=== PATIENT | female | born 1995 | race Caucasian/White ===

== ENCOUNTER → 2018-03-07 11:11 | Outpatient (CLI) | payer OTHER, SELFPAY ==
--- NOTE | 2018-03-07 11:22 | XR_ITS ---
XR chest 2V HISTORY: Positive TB skin test ITS.REASON: REACTION TO TB SKIN TEST ORDERING PHYSICIAN: Eryn Singh PATIENT AGE: 22 years COMPARISON: None FINDINGS: The cardiomediastinal silhouette and pulmonary vascularity are within normal limits. The lungs are clear without infiltrates, suspicious nodules, or pleural effusions. No acute bony abnormalities. IMPRESSION: Negative chest, no acute finding No radiographic evidence of active tuberculosis
== END ==
PROVIDERS: PCP Nurse Practitioner Family; Visit Provider Nurse Practitioner Family
DX: R76.11 Nonspecific reaction to tuberculin skin test without active tuberculosis (principal)
CPT/HCPCS: 71046

== ENCOUNTER → 2018-09-01 15:51 | Outpatient (CLI) | payer BC, SELFPAY ==
--- NOTE | 2018-09-01 15:56 | XR_ITS ---
XR sacrum coccyx min 2V CLINICAL INDICATION: Posttraumatic pain ITS.REASON: COCCYGEAL PAIN ORDERING PHYSICIAN: Iliana Govea PATIENT AGE: 22 years Comparison: None FINDINGS: No fracture or dislocation. No lytic or blastic change IMPRESSION: Negative sacrum/coccyx
== END ==
PROVIDERS: PCP Physician Assistant; Visit Provider Physician Assistant
DX: M53.3 Sacrococcygeal disorders, not elsewhere classified (principal)
CPT/HCPCS: 72220

== ENCOUNTER → 2020-03-17 18:38 | Outpatient (CLI) | payer MEDICAID, SELFPAY | PROVIDERS: Visit Provider Nurse Practitioner | DX: B35.1 Tinea unguium (principal) | CPT/HCPCS: 87102; 87206; 87220 ==

== ENCOUNTER → 2020-08-01 15:24 | Outpatient (CLI) | payer MEDICAID, SELFPAY | PROVIDERS: PCP Family Medicine; Visit Provider Nurse Practitioner Family | DX: Z03.818 Encounter for observation for suspected exposure to other biological agents ruled out (principal); J06.9 Acute upper respiratory infection, unspecified | CPT/HCPCS: U0003 ==

== ENCOUNTER 2021-03-18 09:36 | Emergency (ER) | payer MEDICAID, SELFPAY ==
[2021-03-18 09:40] VITALS: BP 138/89; PULSE 87; RESP 19; TEMP 36.8; O2SAT 100; BMI 26.6
--- NOTE | 2021-03-18 10:29 | HMH.EDUTC ---
[facility] Disposition Clinical Impression: UTI (urinary tract infection) Qualifiers: Urinary tract infection type: site unspecified Hematuria presence: with hematuria Qualified Code(s): N39.0 - Urinary tract infection, site not specified; R31.9 - Hematuria, unspecified Disposition: Home, Self-Care Condition on Discharge: Good Instructions: DI for Urinary Tract Infection (UTI), Urinary Tract Infection, Nitrofurantoin Additional Instructions: *Increase fluids. Water not Soda or Tea *Start antibiotic immediately and be sure to take as ordered for the FULL length of time although you should start to see improvement over the next 48 hours *Pyridium as needed Remember this medication will turn your urine [place]. This is normal but it will stain what ever it gets on *You should not use Pyridium for more than 48 hours. If so , follow up with your primary physician to review urine culture and ensure that antibiotic is adequate for infection *Be SURE to follow up anytime for new or worsening symptoms with your family doctor. AND in 48 hours for urine culture results with your family doctor, if you do not have a doctor then you may call back to the [facility] for urine culture results and further treatment. We do recommend that you choose and establish care with a Primary Care Physician. AND follow up with them in 10-14 days to repeat UA to ensure infection is resolved and blood no longer present *Be sure to let your PCP know that we sent urine cultures from the [facility] so they can follow up to ensure that you area the on the correct antibiotic Call your doctor office and make appointment for 48 hours (2 days from today) to follow up and get the results of your urine culture and further treatment Prescriptions: Nitrofurantoin Monohyd/M-Cryst [Macrobid 100 mg Capsule] 100 mg PO BID 7 Days #14 cap Transmission Status: Pending to [facility] # Phenazopyridine HCl [Pyridium 200mg Tablet] 200 pow PO TID #6 tab Transmission Status: Pending to [facility] # Referrals: Arvind Connolly MD [Primary Care Provider] - As needed Time of Disposition: 10:35 Medical Decision Making - Mariusz Inquiry Pt receiving controlled substance: No Mariusz was queried for this patient: No Vital Signs: 03/18/21 09:40 Temperature 98.3 F Temperature Source Oral Pulse Rate [Right Brachial] 87 Respiratory Rate 19 Blood Pressure [Right Arm] 138/89 Blood Pressure Mean [Right Arm] 105 Blood Pressure Source [Right Arm] Automatic Cuff Blood Pressure Position [Right Arm] Sitting 02 Sat by Pulse Oximetry 100 Oxygen Delivery Method Room Air - Lab Data Lab results reviewed: Yes: I reviewed the patient's lab results. Orders (Tests/Meds): ORDERS Category Date Time Status Urine Culture Stat Micro 03/18/21 10:00 Received [facility] HPI - General Stated complaint: possible uti Time Seen by Provider: 03/18/21 10:30 Mode of Arrival: Ambulatory Source of Information: Patient Limitations: No Limitations Description of Symptoms (Recalled from Triage Doc. by RN): PATIENT C/O PAINFUL URINATION SINCE THIS MORNING HEENT Symptoms (Recalled from RN notes): No Resp Symptoms (Recalled from RN notes): No Skin Symptoms (Recalled from RN notes): No MS Symptoms (Recalled from RN notes): No Functional Status (Recalled from RN notes): WNL - History of Present Illness Provider Complaint: Patient state that she noticed yesterday her urine was dark with strong odor States that this morning she was having the feeling of urgency and frequency and burning with urination States that she feels like she may have a UTI Denies fever, chills or abdominal pain - Related Data Home Medications Medication Instructions Recorded Confirmed cetirizine 10 mg capsule 10 mg PO ONCE 03/04/18 03/18/21 norgestimate 0.18 mg/0.215 mg/0.25 1 tab PO ONCE 03/04/18 03/18/21 mg-ethinyl estradiol 25 mcg tablet levothyroxine 100 mcg tablet 100 mcg PO DAILY tab 06/16/20 03/18/21
[2021-03-18 10:40] VITALS: BP 138/89; PULSE 87; RESP 19; TEMP 36.8; O2SAT 100
[2021-03-18 10:40] LABS: Apearance,Urine Cloudy (Clear); Color,Urine Dark Yellow (Yellow); PH,Urine 6.5 (5.0-8.5); Protein,Urine 2+ (Negative); Specific Gravity, Urine 1.015 (1.005-1.030)
[2021-03-18 10:41] LABS: Bilirubin,Urine Negative (Negative); Blood, Urine 3+ (Negative); Glucose,Urine (UA) Negative (Negative); Ketones,Urine Negative (Negative); UTC Leukocyte Esterase,Urine 1+ (Negative); UTC Nitrate,Urine Negative (Negative); Urobilinogen,Urine 0.2 EU/dl (0.2)
== END 2021-03-18 10:43 | disposition home or self-care (01) ==
PROVIDERS: Emergency Provider Nurse Practitioner; PCP Family Medicine
DX: N30.00 Acute cystitis without hematuria (principal)
CPT/HCPCS: 81003; 87086; 87088; 87186; 99202; G0463

== ENCOUNTER 2022-10-21 13:43 | Emergency (ER) | payer OTHER, SELFPAY ==
[2022-10-21 14:00] VITALS: BP 145/88; PULSE 107; RESP 20; TEMP 37; O2SAT 98; BMI 29.5
--- NOTE | 2022-10-21 14:04 | EXP.UTC ---
Discharge Plan Disposition Patient Disposition: Home, Self-Care Condition: Good Prescriptions Prescriptions: New methylprednisolone 4 mg Tablets,Dose Pack 4 mg PO DIRECTED Qty: 21 0RF pseudoephedrine HCl 30 mg tablet 30 mg PO Q6HP PRN (Reason: ear pain) Qty: 30 0RF cefdinir 300 mg capsule 300 mg PO BID Qty: 20 0RF No Action cetirizine [Zyrtec] 10 mg capsule 10 mg PO ONCE levothyroxine 112 mcg tablet 112 mcg PO DAILY 90 Days Qty: 90 2RF norgestimate-ethinyl estradiol 0.18/0.215/0.25 mg-25 mcg tablet 1 tab PO ONCE 90 Days Qty: 90 2RF fluticasone propionate 120 SPR/BOT bottle 2 spr intranasal DAILY sulfamethoxazole-trimethoprim [Bactrim DS] 800-160 mg tablet 1 tab PO BID Referrals Follow up/Referrals: Tuan Ghotra MD [Primary Care Provider] - See instructions Activity Restrictions/Add. Instructions Additional Instructions/Restrictions: Drink plenty of fluids. Stop the bactrim that you have been taking. Start the Amoxicillin 875 and medrol dose pack in its place. The pseudophedirine that we prescribed should help with the pain and pressure in your ears until the antibiotic kicks in to treat it. Take tylenol or ibuprofen for pain or fever. Take the medications as directed. Follow up with your regular doctor. GO TO THE ER FOR ANY WORSENING SYMPTOMS Her symptoms began last week, so her work excuse needs to count for 10/18 () and 10/19 (saturday), if possible. Clinical Impressions Clinical Impression: Otitis media Stand Alone Forms Stand Alone Forms: Work/School Release Discharge ED Provider: Chilango Elizabeth [facility] HPI General Stated complaint: ear pain Time Seen by Provider: 10/21/22 14:04 History of Present Illness Provider Complaint: She states that she has had bilateral ear pain and sinus congestion for the past 3 days. Related Data Home Medications Medication Instructions Recorded Confirmed cetirizine 10 mg capsule (Zyrtec) 10 mg PO ONCE Allergy symptoms 03/04/18 10/21/22 fluticasone propionate 50 2 spr intranasal DAILY Allergy 03/18/21 10/21/22 mcg/actuation nasal symptoms spray,suspension sulfamethoxazole 800 1 tab PO BID abx 10/21/22 10/21/22 mg-trimethoprim 160 mg tablet (Bactrim DS) Previous Rx's Medication Instructions Recorded levothyroxine 112 mcg tablet 112 mcg PO DAILY thyroid 90 days 07/10/22 #90 tabs norgestimate 0.18 mg/0.215 mg/0.25 1 tab PO ONCE control 90 07/10/22 mg-ethinyl estradiol 25 mcg tablet days #90 tabs cefdinir 300 mg capsule 300 mg PO BID #20 caps 10/21/22 methylprednisolone 4 mg tablets in 4 mg PO DIRECTED #21 tabs 10/21/22 a dose pack pseudoephedrine HCl 30 mg tablet 30 mg PO Q6HP PRN ear pain #30 tabs 10/21/22 Allergies Allergy/AdvReac Type Severity Reaction Status Date / Time No Known Allergies Allergy Verified 10/21/22 14:12 [facility] Disclaimer: The information contained in this section may have been updated after the patient was seen, as this information can be updated by other users. Medical History Hypothyroidism Seasonal allergies Surgical History H/O adenoidectomy H/O hernia repair History of dental surgery History of placement of ear tubes History of tonsillectomy Family History Grandmother Cancer Thyroid disorder Grandfather Coronary artery disease Social History Smoking Status: Never smoker second hand exposure: No alcohol intake: never substance use type: denies use current occupational status: employed and other Travel in the last 8 weeks: Inside the [place] household members: family housing: house ROS Obtained: Yes All systems reviewed & no additional complaints except as documented Cons
[2022-10-21 15:28] VITALS: BP 145/88; PULSE 107; RESP 20; TEMP 37; O2SAT 98
== END 2022-10-21 15:28 | disposition home or self-care (01) ==
PROVIDERS: Emergency Provider Nurse Practitioner Family; PCP Family Medicine
DX: H66.90 Otitis media, unspecified, unspecified ear (principal)
CPT/HCPCS: 96372; 99212; 99213; G0463; J0696

== ENCOUNTER → 2022-11-28 09:02 | Outpatient (CLI) | payer OTHER, SELFPAY ==
[2022-11-28 17:11] LABS: Basophils # 0.1 K/mm3 (0-0.2); Basophils % 0.8 % (0.1-2.0); Eosinophils # 0.2 K/mm3 (0.0-0.4); Eosinophils % 2.3 % (0.1-12.0); Hematocrit 37.2 % (37.0-47.0); Lymphocytes # 1.2 K/mm3 (0.7-4.5); Mean Corpuscular HGB Conc 32.3 g/dL (31.8-35.4); Mean Corpuscular Hemoglobin 24.8 pg (27.0-31.2); Mean Corpuscular Volume 76.9 fl (81-99); Mean Platelet Volume 9.2 fl (7.4-10.4); Monocytes # 0.4 K/mm3 (0.1-1.0); Monocytes % 4.7 % (1.7-9.3); Neutrophils # 6.3 K/mm3 (1.8-7.8); Neutrophils % 77.3 % (37.0-80.0); Platelet Count 361 K/mm3 (142-424); Red Blood Count 4.85 M/mm3 (4.20-5.40); Red Cell Distribution Width 16.1 % (11.5-17.5); White Blood Count 8.2 K/mm3 (4.8-10.8)
[2022-11-28 17:41] LABS: Alanine Aminotransferase 13 U/L (12-78); Albumin/Globulin Ratio 1.6 (1.1-1.8); Alkaline Phosphatase 92 U/L (38-126); Anion Gap 9.5 mEq/L (5-15); Aspartate Amino Transferase 22 U/L (14-36); Bilirubin,Total 0.4 mg/dl (0.2-1.3); Blood Urea Nitrogen 7 mg/dl (7-17); Calcium 8.6 mg/dl (8.4-10.2); Carbon Dioxide 26 mmol/L (22.0-30.0); Chloride 106 mmol/L (98-107); Chol/HDL Ratio 4.3 (1-3.5); Cholesterol 209 mg/dl (140-200); Estimated Glomerular Filt Rate 120 ml/min (>60); GFR (African American) 145 ML/MIN (>60); Globulin 2.5 g/dL (1.3-3.2); Glucose 87 mg/dl (74-100); HDL Cholesterol 49 mg/dl (40-60); Potassium 4.5 mmoL/L (3.5-5.1); Sodium 137 mmol/L (136-145); Total Protein,Serum 6.5 g/dl (6.3-8.2); Triglycerides 156 mg/dl (30-150); VLDL Cholesterol 31 mg/dL (0-40)
[2022-11-28 17:52] LABS: Direct LDL Cholesterol 137.17 mg/dL (100-129)
[2022-11-28 18:12] LABS: Thyroid Stimulating Hormone 1.36 uIU/mL (0.465-4.68)
== END ==
PROVIDERS: PCP Nurse Practitioner Family; Visit Provider Nurse Practitioner Family
DX: R53.83 Other fatigue (principal); E03.9 Hypothyroidism, unspecified; Z79.899 Other long term (current) drug therapy
CPT/HCPCS: 36415; 80053; 80061; 84436; 84443; 85025

== ENCOUNTER → 2022-11-28 18:56 | Outpatient (CLI) | payer OTHER, SELFPAY | PROVIDERS: PCP Family Medicine; Visit Provider Family Medicine | DX: R53.83 Other fatigue (principal) ==

== ENCOUNTER → 2022-11-29 07:44 | Outpatient (CLI) | payer OTHER, SELFPAY ==
--- NOTE | 2022-11-29 07:44 | US_ITS ---
FINAL REPORT CLINICAL HISTORY: abdominal pain COMPARISON: None FINDINGS: Sonographic images of the right upper quadrant were obtained. The pancreas is partially obscured.The liver has an unremarkable appearance.The gallbladder appears normal without evidence of gallstones.There is no evidence of biliary ductal dilatation.The common duct measures 2 mm. Limited images of the right kidney are unremarkable. IMPRESSION: Unremarkable right upper quadrant ultrasound. Reviewed, Interpreted and Dictated by Chetan Armenta III, MD Transcribed by Mabel Lopez Authenticated and [facility]
== END ==
PROVIDERS: PCP Family Medicine; Visit Provider Family Medicine
DX: R10.9 Unspecified abdominal pain (principal); R53.83 Other fatigue
CPT/HCPCS: 76705

== ENCOUNTER → 2022-12-28 09:15 | Outpatient (CLI) | payer OTHER, SELFPAY ==
--- NOTE | 2022-12-28 | CA_ITS ---
APPROVED REPORT Exam: Exercise Treadmill Technologist: Marci Eddy, Ht: 5 ft 6 in Wt: 185 lbs BSA: 1.93 m2 HR: 110 bpm BP: 136/95 mmHg Rhythm: sinus tachycardia Medical History Medications: Omeprazole,,,,, Levothyroxine,,,,, ZYRTEC,,,,, Cardiac Risk Factors: FHX of CAD Stress Test Details Test: Muriel HR Resting HR: 107 bpm Max Heart Rate (APMHR): 193.302106 bpm Max HR Achieved: 186 bpm Target HR (85% APMHR): 164.049807 bpm % of APMHR: 96.37 Recovery HR: 170 bpm BP Resting BP: 127/90 mmHg Max BP: 155/90 mmHg Recovery BP: 138.0/70.0 mmHg ECG Resting ECG: sinus tachycardia Clinical Reason for Termination: Dyspnea Exercise duration: 08:31 min Highest Stage Achieved: Exercise capacity: 10.1 METs Stress ECG Conclusion During muriel protocol pt walked 8:21 minutes, 10.1 METS. No CP noted. No arrhythmias noted. <1.5mm ST segment changes. Negative stress. Test Summary REST . . . . . . . Sitting REST . . . . . . . Standing REST 11:18 0.0 1.2 107 . 127/ 90 . . Stage 1 01:00 10.0 1.7 140 . . . . Stage 1 02:00 10.0 1.7 144 . . . . Stage 1 03:00 10.0 1.7 150 . 141/ 93 . . Stage 2 01:00 12.0 2.5 155 . . . . Stage 2 02:00 12.0 2.5 161 . . . . Stage 2 03:00 12.0 2.5 165 . 155/ 90 . . Stage 3 01:00 14.0 3.4 176 . . . . Stage 3 02:00 14.0 3.4 184 . . . . Stage 3 02:31 14.0 3.4 186 . . . Stop exercise at 08:31 RECOVERY 01:00 0.0 0.0 167 . 138/ 70 . . RECOVERY 02:00 0.0 0.0 143 . 138/ 70 . . RECOVERY 03:00 0.0 0.0 132 . 138/ 70 . . RECOVERY 04:00 0.0 0.0 136 . 138/ 70 . . RECOVERY 04:38 0.0 0.0 138 . 136/ 72 . . Electronically signed by : Pan Paredes MD 12/28/2022 17:01:21
== END ==
LOC: RT 09:17
PROVIDERS: PCP Family Medicine; Visit Provider Family Medicine
DX: R07.89 Other chest pain (principal); R10.9 Unspecified abdominal pain
CPT/HCPCS: 93017

== ENCOUNTER → 2023-01-17 10:11 | Outpatient (CLI) | payer OTHER, SELFPAY ==
--- NOTE | 2023-01-17 10:15 | NM_ITS ---
FINAL REPORT CLINICAL HISTORY: chest pressure..abd pain neg u/s for gb stones from 11/29/22 10:30 am 8.07 mci tc choletec 1.7 mcg of cck injected into lt ant no pain during cck COMPARISON: None FINDINGS: Sequential anterior projection images of the abdomen were obtained after the intravenous injection of 8.07 mCi technetium 99m Choletec. There is normal uptake of radiotracer by the liver. The bile ducts and gallbladder are visualized by 10 minutes. Bowel activity is noted by 50 minutes. After 1 hour, 1.7 ?g of CCK was injected intravenously for calculation of gallbladder ejection fraction. The gallbladder ejection fraction is 84 %, which is within normal limits. IMPRESSION: No evidence of cystic duct or bile duct obstruction. Normal gallbladder ejection fraction of 84 %. Reviewed, Interpreted and Dictated by Chetan Armenta III, MD Transcribed by Mabel Lopez Authenticated and [facility]
== END ==
PROVIDERS: PCP Family Medicine; Visit Provider Family Medicine
DX: R07.89 Other chest pain (principal); R10.9 Unspecified abdominal pain
CPT/HCPCS: 78227; A9537; J2805

== ENCOUNTER → 2023-02-02 08:37 | Outpatient (CLI) | payer OTHER, SELFPAY ==
[2023-02-02 09:43] LABS: Basophils % 0.8 % (0.1-2.0); Eosinophils # 0.2 K/mm3 (0.0-0.4); Eosinophils % 4.1 % (0.1-12.0); Hematocrit 39.8 % (37.0-47.0); Hemoglobin 12.6 g/dL (12.2-16.2); Lymphocytes # 1.5 K/mm3 (0.7-4.5); Lymphocytes % 25.6 % (10-50); Mean Corpuscular HGB Conc 31.7 g/dL (31.8-35.4); Mean Corpuscular Hemoglobin 24.3 pg (27.0-31.2); Mean Corpuscular Volume 76.7 fl (81-99); Monocytes # 0.4 K/mm3 (0.1-1.0); Monocytes % 6.7 % (1.7-9.3); Neutrophils # 3.6 K/mm3 (1.8-7.8); Neutrophils % 62.8 % (37.0-80.0); Platelet Count 317 K/mm3 (142-424); Red Blood Count 5.18 M/mm3 (4.20-5.40); Red Cell Distribution Width 15.4 % (11.5-17.5); White Blood Count 5.7 K/mm3 (4.8-10.8)
[2023-02-02 10:24] LABS: Alanine Aminotransferase 15 U/L (12-78); Albumin Level 4.1 g/dl (3.5-5.0); Albumin/Globulin Ratio 1.6 (1.1-1.8); Alkaline Phosphatase 89 U/L (38-126); Anion Gap 17.2 mEq/L (5-15); Aspartate Amino Transferase 20 U/L (14-36); Bilirubin,Total 0.3 mg/dl (0.2-1.3); Blood Urea Nitrogen 8 mg/dl (7-17); Calcium 9.1 mg/dl (8.4-10.2); Carbon Dioxide 26 mmol/L (22.0-30.0); Chloride 100 mmol/L (98-107); Estimated Glomerular Filt Rate 100 ml/min (>60); GFR (African American) 121 ML/MIN (>60); Globulin 2.5 g/dL (1.3-3.2); Glucose 84 mg/dl (74-100); Potassium 4.2 mmoL/L (3.5-5.1); Sodium 139 mmol/L (136-145); Total Protein,Serum 6.6 g/dl (6.3-8.2)
[2023-02-04 14:10] LABS: Deamidated Gliadin Abs, IgA 7 units (0-19); Deamidated Gliadin Abs, IgG 6 units (0-19); Endomysial IgA Antibody Negative (Negative); Tissue Transglutaminase IgA Ab <2 U/mL (0-3); Tissue Transglutaminase IgG Ab <2 U/mL (0-5)
[2023-02-06 09:15] LABS: Reticulin IgA Antibody Negative titer (Neg:<1:2.5)
== END ==
PROVIDERS: PCP Family Medicine; Visit Provider Nurse Practitioner
DX: R42 Dizziness and giddiness (principal); R10.9 Unspecified abdominal pain; R53.83 Other fatigue; D64.9 Anemia, unspecified
CPT/HCPCS: 36415; 80053; 83516; 85025; 86255; 86256

== ENCOUNTER 2023-02-21 08:58 | Day surgery (SDC) | payer OTHER, SELFPAY ==
[2023-02-06 12:19] VITALS: BMI 29.8
[2023-02-21] VITALS (7 sets, daily range): BP systolic 114–156; BP diastolic 68–86; PULSE 84–111; RESP 12–17; TEMP 36.4–36.7; O2SAT 96–99
[2023-02-21 09:21] LABS: Urine Pregnancy, HCG Qual. Negative (Negative)
--- NOTE | 2023-02-21 09:43 | EXP.ANES.CKL ---
[facility] Disclaimer: The information contained in this section may have been updated after the patient was seen, as this information can be updated by other users. Medical History Anemia Dehydration, mild Dizziness Hypothyroidism Impacted cerumen, right ear Seasonal allergies Tinnitus of left ear Surgical History H/O adenoidectomy H/O hernia repair History of dental surgery History of placement of ear tubes History of tonsillectomy Family History Grandmother Cancer Thyroid disorder Grandfather Coronary artery disease Social History Smoking Status: Never smoker second hand exposure: No alcohol intake: never substance use type: denies use current occupational status: employed Travel in the last 8 weeks: [place] the [place] household members: family housing: house education level: college service: No caffeine: Yes special yajaira needs: No do you feel safe at home: Yes victim of physical abuse: No victim of emotional abuse: No victim of sexual abuse: No would you like helpful sources: No [facility] Anesthesia Checklist Patient Identification Patient Identification: Arm Band Structural Data Admitted From: Home Planned Operative Procedure/s: EGD Consent for Planned Operative Procedure(s) Verified: Yes Verified Documents: Surgical Consent and History and Physical NPO Status Verified Time NPO: 00:00 Additional verifications Anesthesia Reactions: No Airway Assessment C-Spine Mobility Assessed: Yes TMJ Mobility Assessed: Yes Dentition: Good Dentition Neurological Assessment Level of Consciousness: Awake and Alert Anesthesia Plan Anesthesia Risk discussed: Yes Anesthesia Plan: Verified ASA Class: II Anesthesia Type: MAC
--- NOTE | 2023-02-21 10:05 | P.PN_ITS ---
[facility] Disclaimer: The information contained in this section may have been updated after the patient was seen, as this information can be updated by other users. Medical History Anemia Dehydration, mild Dizziness Hypothyroidism Impacted cerumen, right ear Seasonal allergies Tinnitus of left ear Surgical History H/O adenoidectomy H/O hernia repair History of dental surgery History of placement of ear tubes History of tonsillectomy Family History Grandmother Cancer Thyroid disorder Grandfather Coronary artery disease Social History Smoking Status: Never smoker second hand exposure: No alcohol intake: never substance use type: denies use current occupational status: employed Travel in the last 8 weeks: [place] the [place] household members: family housing: house education level: college service: No caffeine: Yes special yajaira needs: No do you feel safe at home: Yes victim of physical abuse: No victim of emotional abuse: No victim of sexual abuse: No would you like helpful sources: No [facility] Anesthesia Checklist Patient Identification Patient Identification: Verbal (Name & ) Structural Data Admitted From: Home Planned Operative Procedure/s: egd Consent for Planned Operative Procedure(s) Verified: Yes Additional verifications Anesthesia Reactions: No Airway Assessment C-Spine Mobility Assessed: Yes TMJ Mobility Assessed: Yes Dentition: Good Dentition Neurological Assessment Level of Consciousness: Awake, Alert and Appropriate Anesthesia Plan Anesthesia Risk discussed: Yes Anesthesia Plan: Verified ASA Class: I Anesthesia Type: MAC
--- NOTE | 2023-02-21 10:19 | HMH.SCOPE ---
Procedure: Date: 02/21/23 Patient Date of :: 1995 Procedure Performed:: EGD & biopsies Indications:: Upset stomach Performing Provider:: Theo Burch MD Referring Provider:: Shani Burch APRN Sedation:: Propofol Procedure:: The gastroscope was gently passed through the incisoral orifice into the oral cavity and under direct visualization the esophagus was intubated. The endoscope was passed down the esophagus, through the stomach, and into the duodenum. Color, texture, mucosa, and anatomy of the esophagus, stomach, and duodenum were carefully examined with the scope. Findings:: Oropharynx: normal Esophagus: normal EG Junction: intact at 40 cm Cardia: normal Fundus: normal Body: normal, biopsies obtained for evaluation of h.pylori Antrum: normal Duodenal bulb: normal Duodenum (second and third portion): normal, biopsies obtained for evaluation of celiac disease Impression: Normal EGD. Symptoms suggestive of abdominal migrains. Recommendations:: Symptomatic therapy as clinically indicated. Complications:: None Estimated blood obtained (mL): 0
== END 2023-02-21 11:05 | disposition home or self-care (01) ==
PROVIDERS: PCP Family Medicine; Visit Provider Internal Medicine Gastroenterology
PROC: 0DJ08ZZ Inspection of Upper Intestinal Tract, Via Natural or Artificial Opening Endoscopic (ICD-10-PCS; CPT 43235; principal; 2023-02-21 10:00)
DX: R10.9 Unspecified abdominal pain (principal); K29.50 Unspecified chronic gastritis without bleeding; Z79.899 Other long term (current) drug therapy
CPT/HCPCS: 43239; 81025

== ENCOUNTER → 2023-07-23 16:58 | Outpatient (CLI) | payer OTHER, SELFPAY ==
[2023-07-23 17:24] LABS: Free T4 (Free Thyroxine) 1.21 ng/dl (0.78-2.19)
[2023-07-23 19:04] LABS: T4 (Thyroxine) 13.3 ug/dl (5.53-11.0); Triiodothryronine (T3) Uptake 27 % (23.5-40.5)
[2023-07-23 19:17] LABS: Thyroid Stimulating Hormone 1.64 uIU/mL (0.465-4.68)
== END ==
PROVIDERS: PCP Family Medicine; Visit Provider Nurse Practitioner Family
DX: E03.9 Hypothyroidism, unspecified (principal); F41.9 Anxiety disorder, unspecified
CPT/HCPCS: 84436; 84439; 84443; 84479

== ENCOUNTER → 2023-09-18 23:09 | Outpatient (CLI) | payer OTHER, SELFPAY | LOC: LAB.DROPOF 23:09 | PROVIDERS: PCP Nurse Practitioner Family; Visit Provider Nurse Practitioner Family | DX: R05.9 Cough, unspecified (principal); J02.9 Acute pharyngitis, unspecified; R53.83 Other fatigue | CPT/HCPCS: 87635 ==

== ENCOUNTER 2024-03-03 12:15 | Outpatient (CLI) | payer BC, SELFPAY ==
[2024-03-03 13:07] LABS: Potassium 4.3 mmoL/L (3.5-5.1)
[2024-03-03 13:10] LABS: Alanine Aminotransferase 19 U/L (12-78); Albumin Level 4.1 g/dl (3.5-5.0); Albumin/Globulin Ratio 1.5 (1.1-1.8); Alkaline Phosphatase 83 U/L (38-126); Anion Gap 14.2 mEq/L (5-15); Aspartate Amino Transferase 22 U/L (14-36); Bilirubin,Total 0.4 mg/dl (0.2-1.3); Blood Urea Nitrogen 9 mg/dl (7-17); Calcium 9.3 mg/dl (8.4-10.2); Carbon Dioxide 26 mmol/L (22.0-30.0); Chloride 104 mmol/L (98-107); Estimated Glomerular Filt Rate 119 ml/min (>60); GFR (African American) 144 ML/MIN (>60); Globulin 2.7 g/dL (1.3-3.2); Glucose 90 mg/dl (74-100); Potassium 4.2 mmoL/L (3.5-5.1); Sodium 140 mmol/L (136-145); Total Protein,Serum 6.8 g/dl (6.3-8.2)
== END 2024-03-03 23:59 | disposition home or self-care (01) ==
LOC: LAB 12:15
PROVIDERS: PCP Family Medicine; Visit Provider Obstetrics & Gynecology
DX: Z01.411 Encounter for gynecological examination (general) (routine) with abnormal findings (principal); N89.8 Other specified noninflammatory disorders of vagina; L70.9 Acne, unspecified; F41.9 Anxiety disorder, unspecified
CPT/HCPCS: 36415; 80053; 84132

== ENCOUNTER 2024-04-21 17:55 | Outpatient (CLI) | payer BC, SELFPAY ==
[2024-04-21 16:56] LABS: Basophils # 0.1 K/mm3 (0-0.2); Basophils % 0.8 % (0.1-2.0); Eosinophils # 0.3 K/mm3 (0.0-0.4); Eosinophils % 3.8 % (0.1-12.0); Hematocrit 42.9 % (37.0-47.0); Lymphocytes # 1.6 K/mm3 (0.7-4.5); Lymphocytes % 21.9 % (10-50); Mean Corpuscular HGB Conc 32.7 g/dL (31.8-35.4); Mean Corpuscular Hemoglobin 28.6 pg (27.0-31.2); Mean Corpuscular Volume 87.4 fl (81-99); Mean Platelet Volume 8.9 fl (7.4-10.4); Monocytes # 0.5 K/mm3 (0.1-1.0); Monocytes % 6.4 % (1.7-9.3); Neutrophils % 67.1 % (37.0-80.0); Platelet Count 356 K/mm3 (142-424); Red Blood Count 4.91 M/mm3 (4.20-5.40); Red Cell Distribution Width 14.2 % (11.5-17.5); White Blood Count 7.4 K/mm3 (4.8-10.8)
[2024-04-21 18:22] LABS: Alanine Aminotransferase 17 U/L (12-78); Albumin/Globulin Ratio 1.4 (1.1-1.8); Alkaline Phosphatase 85 U/L (38-126); Anion Gap 14.6 mEq/L (5-15); Aspartate Amino Transferase 21 U/L (14-36); Bilirubin,Total 0.3 mg/dl (0.2-1.3); Blood Urea Nitrogen 12 mg/dl (7-17); Calcium 9.6 mg/dl (8.4-10.2); Carbon Dioxide 24 mmol/L (22.0-30.0); Chloride 105 mmol/L (98-107); Chol/HDL Ratio 4.5 (1-3.5); Cholesterol 265 mg/dl (140-200); Estimated Glomerular Filt Rate 119 ml/min (>60); GFR (African American) 144 ML/MIN (>60); Globulin 2.9 g/dL (1.3-3.2); Glucose 81 mg/dl (74-100); HDL Cholesterol 59 mg/dl (40-60); Potassium 4.6 mmoL/L (3.5-5.1); Sodium 139 mmol/L (136-145); Total Protein,Serum 6.9 g/dl (6.3-8.2); Triglycerides 207 mg/dl (30-150); VLDL Cholesterol 41 mg/dL (0-40)
[2024-04-21 18:32] LABS: Direct LDL Cholesterol 178.94 mg/dL (100-129)
[2024-04-21 18:54] LABS: Thyroid Stimulating Hormone 1.77 uIU/mL (0.465-4.68)
[2024-04-21 19:45] LABS: Iron 92 ug/dL (37-170)
[2024-04-21 19:54] LABS: Total Iron Binding Capacity 427 ug/dL (265-497)
== END 2024-04-21 23:59 | disposition home or self-care (01) ==
LOC: LAB.DROPOF 17:56
PROVIDERS: PCP Nurse Practitioner Family; Visit Provider Nurse Practitioner Family
DX: F41.9 Anxiety disorder, unspecified (principal); E03.9 Hypothyroidism, unspecified
CPT/HCPCS: 80050; 80053; 80061; 83540; 83550; 84443; 85025

== ENCOUNTER → 2024-09-17 13:12 | Outpatient (CLI) | payer BC, SELFPAY | LOC: SL 13:13 | PROVIDERS: PCP Family Medicine; Visit Provider Family Medicine | DX: R53.83 Other fatigue (principal) | CPT/HCPCS: G0399 ==

== ENCOUNTER 2024-10-22 09:45 | Outpatient (CLI) | payer BC, SELFPAY ==
[2024-10-22 16:17] LABS: Basophils # 0.1 K/mm3 (0-0.2); Basophils % 0.7 % (0.1-2.0); Eosinophils # 0.5 K/mm3 (0.0-0.4); Eosinophils % 6.2 % (0.1-12.0); Hematocrit 43.5 % (37.0-47.0); Hemoglobin 13.7 g/dL (12.2-16.2); Lymphocytes # 1.8 K/mm3 (0.7-4.5); Mean Corpuscular HGB Conc 31.5 g/dL (31.8-35.4); Mean Corpuscular Hemoglobin 27.8 pg (27.0-31.2); Mean Corpuscular Volume 88.2 fl (81-99); Mean Platelet Volume 10.8 fl (7.4-10.4); Monocytes # 0.6 K/mm3 (0.1-1.0); Monocytes % 7.1 % (1.7-9.3); Neutrophils # 5.6 K/mm3 (1.8-7.8); Neutrophils % 64.8 % (37.0-80.0); Platelet Count 351 K/mm3 (142-424); Red Blood Count 4.93 M/mm3 (4.20-5.40); Red Cell Distribution Width 12.9 % (11.5-17.5); White Blood Count 8.6 K/mm3 (4.8-10.8)
[2024-10-22 17:05] LABS: Alanine Aminotransferase 20 U/L (12-78); Albumin Level 4.6 g/dl (3.5-5.0); Albumin/Globulin Ratio 2.2 (1.1-1.8); Alkaline Phosphatase 98 U/L (38-126); Anion Gap 19.2 mEq/L (5-15); Aspartate Amino Transferase 29 U/L (14-36); Bilirubin,Total 0.3 mg/dl (0.2-1.3); Blood Urea Nitrogen 10 mg/dl (7-17); Calcium 9.3 mg/dl (8.4-10.2); Carbon Dioxide 24 mmol/L (22.0-30.0); Chloride 103 mmol/L (98-107); Chol/HDL Ratio 4.7 (1-3.5); Cholesterol 241 mg/dl (140-200); Estimated Glomerular Filt Rate 119 ml/min (>60); GFR (African American) 144 ML/MIN (>60); Globulin 2.1 g/dL (1.3-3.2); Glucose 53 mg/dl (74-100); HDL Cholesterol 51 mg/dl (40-60); Potassium 4.2 mmoL/L (3.5-5.1); Sodium 142 mmol/L (136-145); Total Protein,Serum 6.7 g/dl (6.3-8.2); Triglycerides 210 mg/dl (30-150); VLDL Cholesterol 42 mg/dL (0-40)
[2024-10-22 17:11] LABS: Hemoglobin A1C 4.9 % (4.0-6.0)
[2024-10-22 17:16] LABS: Direct LDL Cholesterol 175.19 mg/dL (100-129)
[2024-10-22 17:22] LABS: T4 (Thyroxine) 13.5 ug/dl (5.53-11.0)
[2024-10-22 17:30] LABS: 25-OH Vitamin D, Total 19.9 ng/mL (30-100)
[2024-10-22 17:36] LABS: Thyroid Stimulating Hormone 3.04 uIU/mL (0.465-4.68)
[2024-10-22 17:50] LABS: HIV Combo NEGATIVE (Negative)
[2024-10-22 17:55] LABS: Vitamin B12 310 pg/mL (239-931)
[2024-10-22 17:56] LABS: Hepatitis C Ab Qual. W/ RFX NEGATIVE (Negative)
[2024-10-22 18:41] LABS: Magnesium 2.3 mg/dl (1.6-2.3)
== END 2024-10-22 23:59 | disposition home or self-care (01) ==
LOC: LAB.DROPOF 10-23 12:37
PROVIDERS: PCP Nurse Practitioner Family; Visit Provider Nurse Practitioner Family
DX: R53.83 Other fatigue (principal); E03.9 Hypothyroidism, unspecified; F41.9 Anxiety disorder, unspecified; F32.A Depression, unspecified; J40 Bronchitis, not specified as acute or chronic
CPT/HCPCS: 80053; 80061; 82306; 82533; 82607; 83036; 83735; 84436; 84443; 85025; 86140; 86803; 87389

== ENCOUNTER 2024-11-06 09:01 | Outpatient (CLI) | payer BC, SELFPAY ==
[2024-11-06 10:16] LABS: Erythrocyte Sedimentation Rate 7 mm/hr (0-20)
[2024-11-06 10:30] LABS: C-Reactive Protein 29.9 mg/L (0-4)
[2024-11-07 10:14] LABS: RA Latex Turbid. 10.6 IU/mL (<14.0)
[2024-11-09 13:10] LABS: Anti-Centromere B Antibodies <0.2 AI (0.0-0.9); Anti-DNA (DS) Ab Qn <1 IU/mL (0-9); Anti-Jo-1 <0.2 AI (0.0-0.9); Anti-Smith Antibody <0.2 AI (0.0-0.9); Antichromatin Antibodies <0.2 AI (0.0-0.9); Antiscleroderma-70 Antibodies <0.2 AI (0.0-0.9); RNP Antibodies <0.2 AI (0.0-0.9); Sjogren's Anti-SS-A <0.2 AI (0.0-0.9); Sjogren's Anti-SS-B <0.2 AI (0.0-0.9)
== END 2024-11-06 23:59 | disposition home or self-care (01) ==
LOC: LAB 09:02
PROVIDERS: PCP Nurse Practitioner Family; Visit Provider Nurse Practitioner Family
DX: R79.82 Elevated C-reactive protein (CRP) (principal); R53.83 Other fatigue
CPT/HCPCS: 36415; 82533; 85651; 86140; 86225; 86235; 86431

== ENCOUNTER 2024-12-28 10:30 | Outpatient (CLI) | payer BC, SELFPAY | END 2024-12-28 23:59 | disposition home or self-care (01) | LOC: LAB.DROPOF 12-29 14:51 | PROVIDERS: PCP Nurse Practitioner Family; Visit Provider Nurse Practitioner Family | DX: R30.0 Dysuria (principal) | CPT/HCPCS: 87086; 87088; 87186 ==

== ENCOUNTER 2025-07-16 10:21 | Outpatient (CLI) | payer BC, SELFPAY ==
[2025-07-16 18:43] LABS: Hematocrit 43.9 % (37.0-47.0); Hemoglobin 13.8 g/dL (12.2-16.2); Immature Granulocytes % 0.2 %; Mean Corpuscular HGB Conc 31.4 g/dL (31.8-35.4); Mean Corpuscular Hemoglobin 27.3 pg (27.0-31.2); Mean Corpuscular Volume 86.8 fl (81-99); Nucleated Red Blood Cells % 0 %; Platelet Count 376 K/mm3 (142-424); Red Blood Count 5.06 M/mm3 (4.20-5.40); Red Cell Distribution Width-SD 41.3 fL; White Blood Count 8.5 K/mm3 (4.8-10.8)
[2025-07-16 18:57] LABS: Albumin Level 4.0 g/dl (3.5-5.0); Chloride 105 mmol/L (98-107); Potassium 4.5 mmoL/L (3.5-5.1); Sodium 136 mmol/L (136-145)
[2025-07-16 18:59] LABS: Alanine Aminotransferase 16 U/L (12-78); Anion Gap 11.5 mEq/L (5-15); Aspartate Amino Transferase 20 U/L (14-36); Blood Urea Nitrogen 7 mg/dl (7-17); Carbon Dioxide 24 mmol/L (22.0-30.0); Creatinine,Serum 0.60 mg/dl (0.52-1.04); Estimated Glomerular Filt Rate 118 ml/min (>60); GFR (African American) 143 ML/MIN (>60)
[2025-07-16 19:00] LABS: Albumin/Globulin Ratio 1.4 (1.1-1.8); Alkaline Phosphatase 102 U/L (38-126); Bilirubin,Total 0.4 mg/dl (0.2-1.3); Calcium 8.9 mg/dl (8.4-10.2); Cholesterol 238 mg/dl (140-200); Globulin 2.9 g/dL (1.3-3.2); Glucose 93 mg/dl (74-100); HDL Cholesterol 55 mg/dl (40-60); Total Protein,Serum 6.9 g/dl (6.3-8.2); Triglycerides 153 mg/dl (30-150)
[2025-07-16 19:03] LABS: Hemoglobin A1C 5.2 % (4.0-6.0)
[2025-07-16 19:31] LABS: Thyroid Stimulating Hormone 3.02 uIU/mL (0.465-4.68)
[2025-07-16 19:39] LABS: C-Reactive Protein 40.0 mg/L (0-4)
[2025-07-16 19:45] LABS: 25-OH Vitamin D, Total 57.5 ng/mL (30-100)
[2025-07-16 19:50] LABS: Vitamin B12 242 pg/mL (239-931)
== END 2025-07-16 23:59 ==
LOC: LAB.DROPOF 07-19 10:22
PROVIDERS: PCP Nurse Practitioner Family; Visit Provider Nurse Practitioner Family
DX: E55.9 Vitamin D deficiency, unspecified (principal); R20.2 Paresthesia of skin; E03.9 Hypothyroidism, unspecified; F41.9 Anxiety disorder, unspecified; R73.09 Other abnormal glucose; E78.5 Hyperlipidemia, unspecified
CPT/HCPCS: 80053; 80061; 82306; 82607; 83036; 84443; 85025; 86140